=== PATIENT | male | born 1980 | race African-American/Black ===

== ENCOUNTER 2020-06-07 21:18 | Emergency (ER) | payer SELFPAY ==
[2020-06-07] MEDS ORDERED: Lidocaine 1% w/Epinephrine 1:100K 20 ML VIAL ONE (21:28)
--- NOTE | 2020-06-07 22:05 | CT ---
CT BRAIN 06/07/20 PROVIDED CLINICAL HISTORY: Trauma. FINDINGS: The ventricular system appears normal in size and morphology. There is no evidence for intracranial h emorrhage or mass effect. Right sided zygomaticomaxillary complex fracture is demonstrated with right periorbital soft tissue swelling and high density fluid within the right maxillary sinus. There is n o evidence for skull fracture. IMPRESSION: 1. No evidence for intracranial hemorrhage or mass effect. 2. Right sided zygomaticomaxillary complex fracture. Correlate with dedicated CT facial bones. POS: JOSELYN
--- NOTE | 2020-06-07 22:06 | CT ---
CT CERVICAL SPINE 06/07/20 PROVIDED CLINICAL HISTORY: Trauma. FINDINGS: There is no evidence for fracture or traumatic subluxation. No prevertebral soft tissue swelling appa rent. The visualized lung apices appear clear. IMPRESSION: No evidence for fracture or traumatic subluxation. POS: JOSELYN
--- NOTE | 2020-06-08 07:45 | CT ---
CT FACIAL BONES: DATE: 06/07/2020. PROVIDED CLINICAL HISTORY: Trauma. FINDINGS: There is a comminuted segmental fracture of the right zygoma. There is fracture extension into the r ight mandibular fossa. There is no TMJ dislocation. There is a comminuted, displaced fracture of the lateral wall of the right orbit. There is a mildly comminuted not significantly displaced fracture involving the floor of the right orbit. There are fr actures of the anterior and posterior rodriguez of the right maxillary sinus, the latter of which is comm inuted and mildly displaced. There is paracoronally oriented fracture involving the right maxilla be tween the right 2nd maxillary premolar and 1st right molar. There is proptosis on the right. The globes and other orbital contents appear otherwise unremarkable . There is near-complete opacification of the right maxillary sinus. No additional fracture is evid ent. IMPRESSION: Right-sided zygomaticomaxillary complex fractures as described. POS: JOSELYN
--- NOTE | 2020-06-08 07:46 | RAD ---
LEFT HAND RADIOGRAPHS 3 VIEWS: DATE: 06/07/2020. PROVIDED CLINICAL HISTORY: Pain status post injury. FINDINGS: No evidence for a fracture or other acute osseous abnormality. If there is persistent clinical monalisa rn, conservative management and followup imaging are advised. IMPRESSION: As above. POS: JOSELYN
== END 2020-06-07 23:20 | disposition home or self-care (01) ==
LOC: ERS 21:18
DX: S02.841A Fracture of lateral orbital wall, right side, initial encounter for closed fracture (principal); S02.31XA Fracture of orbital floor, right side, initial encounter for closed fracture; S02.40CA Maxillary fracture, right side, initial encounter for closed fracture; S02.40EA Zygomatic fracture, right side, initial encounter for closed fracture; S02.2XXA Fracture of nasal bones, initial encounter for closed fracture; S61.412A Laceration without foreign body of left hand, initial encounter; S05.31XA Ocular laceration without prolapse or loss of intraocular tissue, right eye, initial encounter; I10 Essential (primary) hypertension; F17.210 Nicotine dependence, cigarettes, uncomplicated; Y04.8XXA Assault by other bodily force, initial encounter
CPT/HCPCS: 70450; 70486; 72125; 96365; J0690